=== PATIENT | female | born 1985 | race American Indian/Alaskan Native ===

== ENCOUNTER 2019-07-12 05:42 | Day surgery (SDC) | payer MEDICAID ==
[~2019-07-12 05:42] MED LIST: SODIUM CHLORIDE 0.9% IRR 1,000 ML BOTTLE IR ONE
[2019-07-12] MEDS ORDERED: LACTATED RINGERS 1,000 ML IV SCH (06:17)
[2019-07-12] MEDS ORDERED: BACTERIOSTATIC SODIUM CHLORIDE 0.9% 30 ML VIAL INFILTRATI ONE (06:27)
[2019-07-12] MEDS ORDERED: LIDOCAINE MPF (2%) 20 MG/1 ML VIAL 5 ML ONE (07:03)
[2019-07-12] MEDS ORDERED: PROPOFOL 200 MG/20 ML VIAL IV ONE (07:03)
[2019-07-12] MEDS ORDERED: ONDANSETRON 4 MG/2 ML INJ ONE (07:03)
[2019-07-12] MEDS ORDERED: HYDROmorphone 1 MG/1 ML INJ ONE (07:03)
[2019-07-12] MEDS ORDERED: KETOROLAC 30 MG/1 ML INJ ONE (07:03)
[2019-07-12] MEDS ORDERED: dexAMETHasone 20 MG/5 ML VIAL ONE (07:03)
[2019-07-12 07:14] LABS: Hemoglobin 13.6 gm/dl (10.1-14.3)
[2019-07-12] MEDS ORDERED: METHYLERGONOVINE MALEATE 0.2 MG/ML VIAL IM ONE (07:18)
[2019-07-12] MEDS ORDERED: SILVER NITRATE APPLICATOR 1 EA TP ONE (07:19)
--- NOTE | 2019-07-12 07:23 | Anesthesia Consultation ---
Anesthesia Consult and Med Hx Date of service: 07/12/19 - Airway Anesthetic Teeth Evaluation: Good ROM Head & Neck: Adequate Mental/Hyoid Distance: Adequate Mallampati Class: Class II Intubation Access Assessment: Good - Pulmonary Exam CTA: Yes - Cardiac Exam Cardiac Exam: RRR - Pre-Operative Health Status ASA Pre-Surgery Classification: ASA2 Proposed Anesthetic Plan: General - Cardiovascular System Hx Hypertension: Yes (x 4 yrs) - Central Nervous System Hx Psychiatric Problems: No - Other Systems Hx Cancer: No
--- NOTE | 2019-07-12 07:24 | Anesthesia Day of Surgery ---
Anesthesia Day of Surgery - Day of Surgery Patient Examined: Yes Patient H&P Reviewed: Yes Patient is NPO: Yes
[2019-07-12] MEDS ORDERED: ONDANSETRON 4 MG/2 ML INJ IV PRN (07:25)
--- NOTE | 2019-07-12 07:25 | Short Stay Summary ---
Short Stay Documentation Date of service: 07/12/19 Narrative H&P: 33y/o with findings of retained products of conception. The patient is status post a spontaneous and has continued to having vaginal bleeding and cramping. Ultrasound demonstrates a thickened endometrium of 27mm. - History Principal diagnosis: Retained products of conception Past Medical History: hypertension Past Surgical History: , Other ( termination) Social history: single - Allergies and Medications Current Medications: Allergies No Known Allergies Allergy (Verified 07/12/19 06:30) Home Medications Medication Instructions Recorded Confirmed Last Taken Type Propranolol [Inderal] 20 mg PO ONCE 07/09/19 07/09/19 04/21/19 History Active Medications Lactated Ringer's (Lactated Ringers) 1,000 mls @ 100 mls/hr IV DIRECT WILFRED Last Admin: 07/12/19 06:50 Dose: 100 mls/hr Documented by: - Physical exam General appearance: no acute distress Integumentary: no rash HEENT: Atraumatic Lungs: Clear to auscultation Breasts: deferred Heart: Regular rate Gastrointestinal: normal Female Genitourinary: deferred Rectal Exam: deferred Extremities: no ischemia - Brief post op/procedure progress note Date of procedure: 07/12/19 Pre-op diagnosis: Retained products of conception Post-op diagnosis: same Procedure: Suction dilation and curettage Anesthesia: RACQUEL Surgeon: DEVON YANEZ Estimated blood loss: other (100ml) Pathology: list (products of conception) Specimen disposition: to lab Condition: stable - Hospital course Hospital course: Patient admitted the day of surgery and underwent a D&C. See op note. Postop uneventful - Disposition Condition at discharge: Good Disposition: DC-[id number] TO HOME OR SELFCARE Short Stay Discharge Plan Activity: other (pelvic rest for one week) Diet: regular Additional Instructions: schedule followup in 2 weeks Prescriptions: Ibuprofen [Motrin] 800 mg PO Q8HR PRN #60 tablet PRN Reason: Pain, Mild (1-3) HYDROcodone/APAP 5-325 [[place] 5/325] 1 each PO Q6HR PRN #20 tablet PRN Reason: Pain
[2019-07-12] MEDS ORDERED: MIDAZOLAM 2 MG/2 ML INJ IV NR (08:00)
--- NOTE | 2019-07-12 08:07 | Operative Report ---
Operative Report Operative Report: Date of surgery: 07/12/2019 Preoperative diagnosis: Retained products of conception Postoperative diagnosis: Same as above Procedure: Suction dilatation and curettage Surgeon: Diana Ly M.D. Anesthesia: Gen. endotracheal anesthesia Estimated blood loss: 100ml Findings: Products of conception Indication: 33-year-old 013 who is status post a spontaneous miscarriage with findings of retained products of conception on ultrasound. The patient had been experiencing continued vaginal bleeding and cramping. Procedure: The patient was taken to the operating room and given general endotracheal anesthesia without complication. The patient is prepped and draped in a normal sterile fashion. A bivalve speculum was placed in the patient's vagina and a single-tooth tenaculums placed on the anterior lip of the cervix. The uterine cavity was then sounded. The cervical os was then dilated with graduated dilators. A number 8 Telugu curved cannula was placed to suction and found to be adequate. The cannula was then gently inserted into the dilated cervical os. Evacuation of the uterine contents were performed. Sharp curettage and endometrial surface was performed until cry was achieved. The cannula was then gently reinserted into the uterine cavity to evacuate any additional contents. After removal of the cannula there was no evidence of any active bleeding. The vaginal instruments were then removed atraumatically. The patient was then successfully extubated and taken to the recovery room in stable condition. All sponge laps and needle counts were correct -2. Pathology consisted of products of conception.
[2019-07-12] MEDS: HYDROmorphone 1 MG/1 ML INJ IV PRN ×3 (08:10→08:30)
[2019-07-12 09:52] VITALS: BP 143/92
--- NOTE | 2019-07-12 13:10 | Post Anesthesia Evaluation ---
- Post Anesthesia Evaluation Patient Participated: Yes Airway Patent: Yes Stable Respiratory Function: Yes Nausea/Vomiting: No Temp > 96.8F: Yes Pain Manageable: Yes Adequeate Hydration: Yes Anesthesia Complications: No Block Receding Appropriately: Not Applicable Patient on Ventilator: No
== END 2019-07-12 09:54 | disposition home or self-care (01) ==
LOC: OR 05:42
PROVIDERS: ATTEND Obstetrics & Gynecology
DX: O02.89 Other abnormal products of conception (principal); G43.909 Migraine, unspecified, not intractable, without status migrainosus; I10 Essential (primary) hypertension; Z98.891 History of uterine scar from previous surgery; Z98.890 Other specified postprocedural states; Z79.899 Other long term (current) drug therapy
CPT/HCPCS: 36415; 59812; 85014; 85018; 86900; 86901; 88305; J1100; J1170; J2210; J2250; J2405; J2704; J7120; J1885